=== PATIENT | female | born 1940 | race Caucasian/White ===

== ENCOUNTER 2018-11-11 11:02 | Emergency (ER) | payer OTHER, MEDICARE ==
--- NOTE | 2018-11-11 12:01 | EDPHY ---
H & P Stated Complaint: left foot red and swollen for a few weeks, concerned re infection Time Seen by Provider: 11/11/18 11:21 HPI/ROS: CHIEF COMPLAINT: Leukocytosis HISTORY OF PRESENT ILLNESS: 78-year-old female presents with leukocytosis. She underwent a lumbar fusion on 10/11/2018. Postop evaluation today revealed white blood cell count 22.5 and left foot swelling. She was sent here by neurosurgery for further evaluation. Neurosurg eval revealed no evidence of operative site infection. She does not feel ill and has not had a fever or chills. Mild low back pain, gradually lessening in the post-op period. REVIEW OF SYSTEMS: complete 10 point ROS reviewed and is negative except for the noted elements in the HPI - Personal History Current Tetanus/Diphtheria Vaccine: Unsure Current Tetanus Diphtheria and Acellular Pertussis (TDAP): Unsure - Medical/Surgical History Hx Asthma: No Hx Chronic Respiratory Disease: No Hx Diabetes: No Hx Cardiac Disease: No Hx Renal Disease: No Hx Cirrhosis: No Hx Alcoholism: No Hx HIV/AIDS: No Hx Splenectomy or Spleen Trauma: No Other PMH: basal cell carcinoma, cognitive communucation deficit, spinal fusion , HH, chronic pain, sciatica, goiter, spinal stenosis - Social History Smoking Status: Never smoked Alcohol Use: Sober Drug Use: None Additional Social History: in rehab - Physical Exam Exam: General Appearance: Alert, pleasant Eyes: Pupils equal and round, no conjunctival pallor or injection ENT, Mouth: Mucous membranes moist Neck: Normal inspection Respiratory: Lungs are clear to auscultation Cardiovascular: Regular rate and rhythm Gastrointestinal: Abdomen is soft and nontender Back: Well-healing surgical scar without tenderness or erythema Neurological: A&O, nonfocal exam Skin: Warm and dry Extremities: Mild left foot and ankle swelling without tenderness or erythema; no calf tenderness or swelling Vascular: 1+ dorsalis pedis pulse, cap refill brisk Psychiatric: Mood and affect normal Constitutional: Initial Vital Signs Temperature (C) 37 C 11/11/18 11:06 Heart Rate 90 11/11/18 11:06 Respiratory Rate 18 11/11/18 11:06 Blood Pressure 99/71 L 11/11/18 11:06 O2 Sat (%) 93 11/11/18 11:06 O2 Delivery Mode Room Air Allergies/Adverse Reactions: No Known Allergies Allergy (Unverified 11/11/18 11:04) Home Medications: Medication Instructions Recorded Fexofenadine HCl 11/11/18 Losartan/Hctz 50/12.5 11/11/18 Neurontin 11/11/18 Robaxin-750 11/11/18 oxyCODONE HCL 11/11/18 Medical Decision Making - Diagnostics Imaging Results: Imaging Impressions Extremity Venous Study 11/11/18 11:59 Impression: There is no sonographic evidence of deep or superficial vein thrombosis in the left lower extremity. Findings were discussed with FANNIE PICHARDO MD at 12:35, on 11/11/2018. Chest X-Ray 11/11/18 12:00 Impression: There is no focal infiltrate. Findings were discussed with FANNIE PICHARDO MD at 12:39, on 11/11/2018. Ankle X-Ray 11/11/18 12:53 Impression: Soft tissue swelling, with no acute osseous abnormality. LEFT FOOT, 3 Views, at 1:04 PM: The bones are mildly demineralized. There is no acute fracture or dislocation. There is no periosteal reaction or marginal erosion. There is no radiopaque foreign body. The tarsometatarsal alignment is anatomic. There is a moderate hallux valgus configuration, with some mild degenerative change at the great toe MTP joint, where there is also an osseous bunion. There is mild pes cavum. There is fluid and ankle soft tissue swelling, most pronounced over the dorsal forefoot. There is a small plantar calcaneal enthesophyte. Impression: Soft tissue edema, with no acute osseous abnormality. Impression: Normal. Foot X-Ray 11/11/18 12:53 Impression: Soft tissue swelling, with no acute osseous abnormality. LEFT FOOT, 3 Views, at 1:04 PM: The bones are mildly demineralized. There is no acute fracture or dislocation. There is no periosteal reaction or marginal erosion. There is no radiopaque foreign body. The tarsometatarsal alignment is anatomic. There is a moderate hallux valgus configuration, with some mild degenerative change at the great toe MTP joint, where there is also an osseous bunion. There is mild pes cavum. There is fluid and ankle soft tissue swelling, most pronounced over the dorsal forefoot. There is a small plantar calcaneal enthesophyte. Impression: Soft tissue edema, with no acute osseous abnormality. Impression: Normal. Imaging: Discussed imaging studies w/ machine scallop cutter Radiologist ED Course/Re-evaluation: This patient presents 1 month s/p lumbar surgery with leukocytosis on outpatient labs. Old medical record reviewed; there are no old medical records available through [facility]. White blood cell count today is normal at 8. She is afebrile and there are no signs of infection on physical exam. Left lower extremity ultrasound reveals no evidence of DVT. Left foot and ankle x-ray unremarkable. In addition, chest x-ray is unremarkable. Urinalysis from 3 days ago reviewed and is normal. She does not have urinary symptoms and repeat urinalysis is not indicated. I feel that she is safe and stable for discharge home. There is no evidence of infection. Warning signs discussed. Differential Diagnosis: Differential diagnosis includes DVT, epidural abscess, pyelonephritis, cholecystitis, influenza, cellulitis, pneumonia, abscess, meningitis. - Data Points Laboratory Results: Laboratory Results 11/11/18 11:56 11/11/18 11:56 11/11/18 11/11/18 11/11/18 12:40 11:56 11:56 WBC 8.34 10^3/uL 10^3/uL (3.80-9.50) RBC 3.86 10^6/uL L 10^6/uL (4.18-5.33) Hgb 11.0 g/dL L g/dL (12.6-16.3) Hct 34.1 % L % (38.0-47.0) MCV 88.3 fL fL (81.5-99.8) MCH 28.5 pg pg (27.9-34.1) MCHC 32.3 g/dL L g/dL (32.4-36.7) RDW 13.8 % % (11.5-15.2) Plt Count 393 10^3/uL 10^3/uL (150-400) MPV 9.0 fL fL (8.7-11.7) Neut % (Auto) 65.5 % % (39.3-74.2) Lymph % (Auto) 26.1 % % (15.0-45.0) Lea % (Auto) 6.8 % % (4.5-13.0) Eos % (Auto) 1.1 % % (0.6-7.6) Baso % (Auto) 0.4 % % (0.3-1.7) Nucleat RBC Rel Count 0.0 % % (0.0-0.2) Absolute Neuts (auto) 5.46 10^3/uL 10^3/uL (1.70-6.50) Absolute Lymphs (auto) 2.18 10^3/uL 10^3/uL (1.00-3.00) Absolute Monos (auto) 0.57 10^3/uL 10^3/uL (0.30-0.80) Absolute Eos (auto) 0.09 10^3/uL 10^3/uL (0.03-0.40) Absolute Basos (auto) 0.03 10^3/uL 10^3/uL (0.02-0.10) Absolute Nucleated RBC 0.00 10^3/uL 10^3/uL (0-0.01) Immature Gran % 0.1 % % (0.0-1.1) Immature Gran # 0.01 10^3/uL 10^3/uL (0.00-0.10) VBG Lactic Acid 1.4 mmol/L mmol/L (0.7-2.1) Sodium 140 mEq/L mEq/L (135-145) Potassium 4.0 mEq/L mEq/L (3.5-5.2) Chloride 103 mEq/L mEq/L (97-110) Carbon Dioxide 25 mEq/l mEq/l (22-31) Anion Gap 12 mEq/L mEq/L (6-14) BUN 8 mg/dL mg/dL (7-23) Creatinine 0.5 mg/dL L mg/dL (0.6-1.0) Estimated GFR > 60 Glucose 80 mg/dL mg/dL (70-100) Calcium 9.7 mg/dL mg/dL (8.5-10.4) Departure - Departure Disposition: Home, Routine, Self-Care Clinical Impression: Swelling of left foot Condition: Good Instructions: Leg Edema (ED) Additional Instructions: The ultrasound of your left leg is normal. You do not have a blood clot. Your white blood cell count is normal today. There is no sign of infection. Keep your leg elevated whenever possible. Wear compression stockings. Referrals: ALEKS ESCOBEDO [Other] - As per Instructions Neo Mark MD [Medical Doctor] - As per Instructions
[2018-11-11 12:08] LABS: PLATELET COUNT 393 10^3/uL (150-400)
[2018-11-11 13:21] VITALS: BP 105/78
== END 2018-11-11 13:41 | disposition home or self-care (01) ==
DX: M20.12 Hallux valgus (acquired), left foot (principal); M21.612 Bunion of left foot; M19.072 Primary osteoarthritis, left ankle and foot; D72.829 Elevated white blood cell count, unspecified

== ENCOUNTER → 2018-11-26 | Outpatient (CLI) | payer OTHER, MEDICARE | LOC: FIMAGING 12:50 | PROVIDERS: ATTEND Physician Assistant | DX: M41.86 Other forms of scoliosis, lumbar region (principal) ==